=== PATIENT | female | born 1965 | race Caucasian/White ===

== ENCOUNTER → 2017-09-04 | Day surgery (SDC) | payer BC ==
--- NOTE | 2017-09-04 14:16 | RADRPT ---
EXAM DATE: 09/04/2017 2:05 PM EDT AGE/SEX: 52 years / Female INDICATIONS: Stage five chronic renal disease. CLINICAL DATA: This is the patient's initial encounter. Patient reports that signs and symptoms have been present for 1 day and indicates a pain score of 0/10. MEDICAL/SURGICAL HISTORY: Diabetes mellitus type II. Hypertension. Fusion, lumbar. Insulin pum p. RADIATION DOSE: 4.54 CTDI (mGy) COMPARISON: No prior exams available for comparison. TECHNIQUE: Multiple contiguous axial images were obtained through the abdomen. Images were obtained using multiple row detector helical technique. Using dose reduction techniques, radiation dose was ke pt as low as reasonably achievable to obtain optimal diagnostic quality images. FINDINGS: Lung bases are clear. The liver is free of focal defects. The gallbladder small and shrunken. Spleen and pancreas are unremarkable Extensive vascular calcifications are noted kidney. Kidneys are small without stone. Moderate stool is seen throughout the colon. There is no retroperitoneal adenopathy. There is no ascites. In the pelvis bladder does contain urine. Extensive vascular calcifications are present. Calcifications began in the lower abdominal aorta ext ending through both iliacs worse on the left than the right. Access on the left would be tenuous. Review of bone windows reveals only degenerative changes. There is transpedicular fixation in the lower lumbar spine L5-S1. CONCLUSION: 1. Extensive vascular disease as described above 2. Negative for acute process. 3. Gallbladder incompletely evaluated. Electronically signed by: Kenn Cox MD 09/04/2017 2:15 PM EDT
== END | disposition home or self-care (01) ==
LOC: HROP 12:54
PROVIDERS: ATTEND Family Medicine
DX: N18.5 Chronic kidney disease, stage 5 (principal); I12.9 Hypertensive chronic kidney disease with stage 1 through stage 4 chronic kidney disease, or unspecified chronic kidney disease; E11.22 Type 2 diabetes mellitus with diabetic chronic kidney disease; Z79.4 Long term (current) use of insulin
CPT/HCPCS: 74176